=== PATIENT | male | born 1980 | race Caucasian/White ===

== ENCOUNTER → 2018-11-02 | Outpatient (CLI) | payer OTHER, SELFPAY ==
[2017-07-07 15:24] VITALS: BMI 29.8
[2018-11-02 17:52] LABS: Cholesterol 211 mg/dL (200); High Density Lipoprotein 51 mg/dL; PSA,Total - Annual Screen 0.87 ng/mL (0.00-4.00); Triglycerides 234 mg/dL; Very Low Density Lipoprotein 47 mg/dL (5-40)
== END | disposition home or self-care (01) ==
PROVIDERS: Family Provider Family Medicine; PCP Family Medicine; Referring Provider Family Medicine; Visit Provider Family Medicine
DX: Z12.5 Encounter for screening for malignant neoplasm of prostate (principal); Z13.220 Encounter for screening for lipoid disorders
CPT/HCPCS: 36415; 80061; 84153; G0103

== ENCOUNTER → 2020-12-04 16:50 | Outpatient (CLI) | payer BC, SELFPAY ==
--- NOTE | 2020-12-04 16:57 | RAD_ITS ---
STUDY: X-RAY - PELVIS AND BILATERAL HIPS REASON FOR EXAM: Male, 40 years old. CHRONIC BACK PAIN TECHNIQUE: AP view of the pelvis.? 2 views of the right hip, and 2 views of the left hip were obtained. COMPARISON: None. FINDINGS: There is a non-specific bowel gas pattern. Normal visualized soft tissue structures. Normal bilateral iliac wings, sacroiliac joints and visualized sacrum. Normal bilateral superior and inferior pubic rami. Normal pubic symphysis. Normal bilateral ischial tuberosities. Normal visualized right femoral head. Normal right acetabulum. Normal right hip joint. Normal visualized left femoral head. Normal left acetabulum. Normal left hip joint. RAD/Hips B/L min 2 views w/ Pelvis IMPRESSION: Normal x-ray examination of the pelvis and bilateral hips. Electronically Signed: Denisa Art MD at 0:54 EDT , Service support ,
[2020-12-04 16:59] LABS: Lyme Ab Screen Interpretation REF LAB
[2020-12-04 17:46] LABS: Absolute Lymphocyte Count 2.06 X10^3/uL (0.83-4.51); Absolute Neutrophil Count 4.2 X10^3/uL (2.0-7.7); Basophil# 0.07 X10^3/uL; Eosinophil# 0.28 X10^3/uL; Eosinophils% 3.8 % (0-5); Hematocrit 43.1 % (40-54); Hemoglobin 14.7 g/dL (13.0-16.5); Lymphocyte # 2.06 X10^3/ul (0.83-4.51); Lymphocyte % 28.2 % (19-41); Mean Corp Hgb Conc 34.1 g/dL (32-36); Mean Corpuscular Hgb 30.6 pg (27.0-32.0); Mean Corpuscular Volume 89.8 fL (80-94); Mean Platelet Vol. 9.5 fl (6.2-12.0); Monocyte# 0.63 X10^3/uL; Monocyte% 8.6 % (0-10); NRBC Flagged by Analyzer 0 % (0-5); Neutrophil # 4.24 X10^3/uL (2.7-7.7); Neutrophil % 58.1 % (47-70); Platelet Count 284 K/mm3 (150-450); RBC Distribution Width CV 13.8 % (11.6-14.6); RBC Distribution Width SD 45.5 fl (35.1-43.9); White Blood Count 7.3 K/mm3 (4.4-11.0)
[2020-12-04 17:57] LABS: Erythrocyte Sedimentation Rate 8 mm/hr (0-20)
[2020-12-04 18:41] LABS: ALB/GLOB Ratio 1.1 RATIO (0.9-2.4); AST(SGOT) 16 U/L (15-37); Alanine Aminotransfer ALT/SGPT 24 U/L (16-61); Alkaline Phosphatase 78 U/L (45-117); Anion Gap 8 (5-15); BUN 14 mg/dL (7-18); BUN/Creat Ratio 14.4 RATIO (10-20); CRP < 2.90 mg/L (0.0-3.0); Calcium,Total 9.1 mg/dL (8.5-10.1); Chloride 102 mmol/L (98-107); Creatinine, Serum 0.97 mg/dL (0.70-1.30); EST Glomerular Filtration Rate 90 mL/min (>60); Est Glom Filt Rate - Afr Amer 108 mL/min (>60); Globulin 3.7 g/dL (2.2-4.2); Glucose 80 mg/dL (74-106); Potassium 3.4 mmol/L (3.5-5.1); Protein, Total 7.7 g/dL (6.4-8.2); Sodium Level 138 mmol/L (136-145)
[2020-12-06 13:18] LABS: ANTINUCLEAR ANTIBODIES DIRECT Negative (Negative)
[2020-12-06 16:06] LABS: Lyme Scn Total Ab w/Rflx <0.91 ISR (0.00-0.90)
== END ==
PROVIDERS: PCP Family Medicine; Referring Provider Family Medicine; Visit Provider Family Medicine
DX: M54.9 Dorsalgia, unspecified (principal); M19.90 Unspecified osteoarthritis, unspecified site
CPT/HCPCS: 36415; 73521; 80053; 85025; 85652; 86038; 86140; 86225; 86235; 86618

== ENCOUNTER 2021-01-02 18:25 | Emergency (ER) | payer OTHER, BC, SELFPAY ==
[2021-01-02 18:25] VITALS: BP 149/99; PULSE 82; RESP 16; TEMP 36.6; O2SAT 100; BMI 32.3
--- NOTE | 2021-01-02 19:12 | RAD_ITS ---
STUDY: X-RAY - RIGHT KNEE REASON FOR EXAM: Male, 40 years old.Fall, posterior knee pain. injury TECHNIQUE: 4 view(s) of the knee. COMPARISON: None. FINDINGS: A large joint effusion is present. There is questionable small cortical oblique fracture in the posterior cortex of the fibular head, although this is not seen on the remaining views. A bone contusion or hairline fracture not detected by x-ray is suspected given the presence and size of the joint effusion. Normal visualized distal femur. Normal visualized proximal tibia. Normal proximal tibiofibular articulation. There is no demonstrated fracture. Normal medial femorotibial compartment. Normal lateral femorotibial compartment. Normal patellofemoral articulation. RAD/Knee 4 or More Views IMPRESSION: 1. A large joint effusion is present. There is questionable small cortical oblique fracture in the posterior cortex of the fibular head, although this is not seen on the remaining views. A bone contusion or hairline fracture not detected by x-ray is suspected given the presence and size of the joint effusion Electronically Signed: Hernandez Johnson MD at 20:12 EST , Service support ,
--- NOTE | 2021-01-02 19:13 | EX.ED.GENINJ ---
HPI History of Present Illness Chief Complaint: Fall Detail of Chief Complaint: Fall with injury to right knee Informant: patient Narrative Narrative: Patient presents to the emergency department after he sustained a fall that was work-related. 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 Patient states that he landed awkwardly and injured his right knee. Patient denies striking his head or loss of consciousness. He denies neck pain. He denies chest pain. Denies abdominal pain. Patient unable to bear weight on his right leg secondary to pain. [facility] Medical History (Updated 01/02/21 @ 19:[address] Savanna Tolliver, DO) GERD (gastroesophageal reflux disease) Home Medications hydrocodone-acetaminophen 1 tab PO Q4H PRN PRN 2 Days #10 tablet 01/02/21 [Rx Last Taken Unknown] Allergy/AdvReac Type Severity Reaction Status Date / Time No Known Allergies Allergy Verified 01/02/21 18:27 Social History (Updated 06/29/19 @ 08:[address] Linda Mckeon, [place]) Smoking Status: Former smoker alcohol intake: current alcohol intake frequency: 0-2 drinks per day Alcohol type: beer substance use type: does not use what type of physical activity do you participate in: weight training frequency: 1-2 times per week ROS ROS ED Constitutional Constitutional ED: Reports systems reviewed and no addt'l complaints, except as documented; Denies body ache(s), change in weight or chills Eyes Eyes: Denies acute decrease in peripheral vision, change in vision, double vision or loss of vision ENT ENT ED: Reports none; Denies ear pain, lip swelling, loss taste/smell, neck pain, otalgia or sore throat Cardiovascular Cardiovascular: Reports none; Denies abdominal pain, chest pain with activity, leg edema, lightheadedness, palpitations, rapid heart rate or syncope Respiratory/Chest Respiratory/Chest: Reports none; Denies change in mental status, dry cough, dyspnea, hemoptysis, shortness of breath at rest or shortness of breath with exertion Gastrointestinal Gastrointestinal: Reports none; Denies abdominal pain, change in stool character, diarrhea, hematemesis, hematochezia, melena, rectal bleeding or vomiting Genitourinary Genitourinary ED: Reports none; Denies abdominal discomfort, anuria, dysuria, genital pain or polyuria Musculoskeletal Musculoskeletal: Reports none and other Details: Right knee pain/injury ; Denies arthralgias, back pain, difficulty walking, extremity pain, muscle weakness or myalgias Integumentary Reports none; Denies abscess or rash Neurologic Neurologic: Reports none; Denies abnormal gait, confusion, focal weakness, frequent falls, headache(s), loss of vision, numbness, paresthesias, radicular pain, vertigo or weakness Psychiatric Psychiatric: Reports systems reviewed and no addt'l complaints, except as documented and none; Denies behavioral changes, confusion, difficulty concentrating, hallucinations, suicidal ideation, tactile hallucinations or visual hallucinations Endocrine Endocrinology: Denies none, cold intolerance, excessive sweating, fatigue or heat intolerance Hematologic/Lymphatic Hematologic/Lymphatic: Reports none; Denies anemia, easy bleeding or easy bruising Allergic/Immunologic Allergic/Immunologic ED: Denies as per HPI, none, lip swelling, mouth swelling, throat swelling, tongue swelling or hives EXAM Physical Exam Const Vital Signs: 01/02/21 18:25 Temperature 98 F Temperature Source Temporal Pulse Rate 82 Respiratory Rate 16 Blood Pressure 149/99 H Blood Pressure Mean 115 Pulse Ox 100 Oxygen Delivery Method Room Air Positive well nourished and well developed General Appearance ED: well developed and NAD HEENT Reports TM's clear and moist mucous membranes normocephalic and atraumatic; Negative for trauma or tenderness Tympanic Membrane ED: Yes TM's clear Eyes PERRL and EOMs intact bilaterally General Eye ED: Negative for pale conjunctiva or scleral icterus Neck no lymphadenopathy, supple and no JVD General: Negative for tenderness Chest Wall inspection of chest normal and palpation of chest normal Chest: Negative for tenderness Resp normal respiratory effort and clear to auscultation bilaterally Effort and Inspection: Negative for respiratory distress or pain with movement Auscultation: Negative for rhonchi, wheezes or diminished lung sounds Cardio regular rate, regular rhythm, S1 normal heart sound, S2 normal heart sound and no murmurs Peripheral Pulses: pulses 2+ throughout GI normal to inspection, nondistended, normoactive bowel sounds, soft to palpation, non-tender, non-distended and no masses Back/Spine no CVA tenderness and no thoracic nor lumbar tenderness Extremity Extremity Narrative: Evaluation of the right knee reveals no obvious deformity. No significant effusion noted. There is no soft tissue swelling noted. He has pain with flexion of the knee past 45 degrees. He has diffuse tenderness about the medial and lateral joint lines. No pain at the hip. No obvious deformity noted and no leg shortening noted. Neurovascularly intact. Not tolerate ligamentous exam of knee due to pain. General Extremety ED: Negative for edema General Extremity: Negative for edema Neuro oriented x3, CN's II-XII intact bilaterally, no sensory deficits noted and gait normal Sensorium / Orientation: awake, alert, oriented to person, oriented to place and oriented to time Motor Exam: strength 5/5 throughout and strength abnormal Psych mental status grossly normal Skin no rashes or lesions noted and no wounds MDM MDM MDM Narrative Medical decision making narrative: Patient will be placed in a knee immobilizer and given crutches. He is given a prescription for [place] for pain. He is given work restrictions. Patient will be referred to orthopedics for follow-up. Radiography Diagnostic Testin view x-rays of the right knee obtained interpreted by myself as no acute fractures or dislocations. Official report from radiology pending. Discharge Plan Triage Chief Complaint: Fall ED Provider: Savanna Tolliver Dx/Rx/DC Orders Clinical Impression: Right knee sprain Instructions: ED Knee Sprain Prescriptions: New hydrocodone-acetaminophen [hydrocodone-acetaminophen] 1 TABLET tablet 1 tab PO Q4H PRN PRN (Reason: Pain) 2 Days Qty: 10 RF: 0 Primary Care Provider: Tonny Romero Referrals: Tonny Romero MD [Primary Care Provider] - Shivam Hood DO [STAFF PHYSICIAN] - 3-5 Days Disposition Disposition: Home, Self Care
[2021-01-02 20:50] VITALS: RESP 18
== END 2021-01-02 20:50 | disposition home or self-care (01) ==
PROVIDERS: Emergency Provider Emergency Medicine; PCP Family Medicine
DX: S83.91XA Sprain of unspecified site of right knee, initial encounter (principal); K21.9 Gastro-esophageal reflux disease without esophagitis; Z87.891 Personal history of nicotine dependence; W17.89XA Other fall from one level to another, initial encounter; Y93.89 Activity, other specified; Y92.89 Other specified places as the place of occurrence of the external cause; Y99.0 Civilian activity done for income or pay
CPT/HCPCS: 73564; 99283

== ENCOUNTER → 2021-01-17 06:40 | Outpatient (CLI) | payer OTHER, SELFPAY ==
--- NOTE | 2021-01-16 12:50 | RAD_ITS ---
STUDY: X-RAY - ORBITS REASON FOR EXAM: Male, 40 years old. HX METAL TO EYE- PRE MRI 01/17/21 TECHNIQUE: 2 view(s) of the orbits were obtained. COMPARISON: None. FINDINGS: Normal bilateral orbits without a metallic orbital foreign body. Normal visualized facial bones. Normal paranasal sinuses. The soft tissue structures are unremarkable. RAD/Orbits for Foreign Body IMPRESSION: No demonstrated metallic orbital foreign body. The patient is cleared for an MRI examination. Electronically Signed: Kel Stanley MD at 13:15 EST , Service support ,
--- NOTE | 2021-01-17 06:42 | MRI_ITS ---
STUDY: MRI RIGHT KNEE REASON FOR EXAM: Medial right knee pain, instability and swelling, right knee injury 2 weeks ago. TECHNIQUE: Standardized fat and water weighted pulse sequences were obtained in all 3 orthogonal planes. COMPARISON: Radiographs 01/02/2021. FINDINGS: There is mild intrasubstance myxoid degeneration of the posterior horn of the medial meniscus without discrete medial meniscal tear. Normal hyaline cartilage of the medial femorotibial compartment. There is a bone contusion of the medial femoral condyle (T2 sagittal images 21-23). There is a bone contusion of the posterior aspect of the medial tibial plateau (T2 coronal images 13-16) and a bone contusion of the anterior aspect of the medial tibial plateau (T2 coronal images 26, 27). There is a tear of the medial collateral ligament (T2 coronal images 21, 22). Normal distal semimembranosus, gracilis and semitendinosus tendons. There is a peripheral tear of the posterior horn of the lateral meniscus (T2 sagittal images 8-10). Normal hyaline cartilage of the lateral femorotibial compartment. There is a small nondisplaced fracture of the posterior aspect of the lateral tibial plateau (proton-density sagittal images 16, 17). There is a subchondral bone contusion of the lateral femoral condyle (T2 sagittal images 7-9) Normal proximal tibiofibular articulation. There is a partial tear of the distal lateral collateral ligament (T2 coronal image 16). Normal popliteus tendon. Normal biceps femoris tendon. There is a complete tear of the mid anterior cruciate ligament (T2 sagittal image 14). Normal posterior cruciate ligament (PCL). Normal congruent patellofemoral articulation. Normal hyaline cartilage of the patellofemoral compartment. Normal medial and lateral patellar retinaculum. Normal visualized quadriceps tendon. Normal patellar tendon. Normal Hoffa''s fat pad. There is a moderate-sized joint effusion with extravasation of fluid. There is a thin medial patellar plica. There is a small popliteal cyst (T2 sagittal images 17-19). There are low-grade strains of the distal posterior vastus medialis and vastus lateralis muscles (T2 coronal images 19-21). There is a low-grade strain of the proximal lateral gastrocnemius muscle (T2 sagittal images 7-9). There is edema in the subcutis adipose space. There is a subtle nondisplaced fracture of the proximal fibula (proton-density sagittal image 7) with bone edema (T2 coronal images 13, 14). MRI/Lower Ext Joint Only (Routine) IMPRESSION: Anterior cruciate ligament tear. Medial collateral ligament tear. Partial tear of the lateral collateral ligament. Peripheral tear of the lateral meniscus. Small nondisplaced fractures of the lateral tibial plateau and proximal fibula. Bone contusions of the medial and lateral femoral condyles, and medial tibial plateau. Low-grade strains of the distal vastus medialis, vastus lateralis and lateral gastrocnemius muscles. Joint effusion with extravasation of fluid. Small popliteal cyst. Electronically Signed: Kadeem Foster MD at 9:35 EST Tel , Service support ,
== END ==
PROVIDERS: PCP Family Medicine
DX: S83.91XA Sprain of unspecified site of right knee, initial encounter (principal)
CPT/HCPCS: 70030; 73721

== ENCOUNTER 2021-04-16 10:30 | Outpatient (RCR) | payer OTHER, SELFPAY ==
--- NOTE | 2021-02-07 09:55 | HP.PTEVAL ---
Patient's Visit Information KURT PECK is a 40 year old M referred to Physical Therapy by Dr. Hailey Lees DO with a diagnosis of R ACL rupture, L LCL strain, tear of R lateral meniscus, DOI: 01/02/21. Date of Evaluation: 02/05/21 Physical Therapist: Edinson Alexandre DPT - Visit Plan Frequency: 3x /Week Duration: 6 Weeks Plan: Start with ROM, gentle progression. Work on edema and add in light quad isometrics. Progress HEP to increase carry over at home. - Subjective Pt. is here today for his initial evaluation with diagnosis of R ACL rupture, L LCL strain, tear of R lateral meniscus. Pt. hurt his knee when he fell from a truck ~1 month ago, DOI: 01/02/21.. He was barely able to bear wt. after wards. Ultimately found that he had the above ACL tear and meniscal tear. He saw his surgeon who desires him to increase his ROM gradually, while maintaining NWB on his RLE for the next 6 weeks. He will then be re evaluated for surgical intervention. He reports pain at medial joint line, stiffness throughout and throbbing most of the time. He is in a knee brace with medial/lateral bracing but is hinged allowing for 0-120deg of R knee mobility. He arrives today using crutches as prescribed. He has been NWBing for a few weeks now. He is icing and using compression sleeve for edema. He has been doing light stretching at home as well. He is hopeful to increase his ROM, decrease his pain and get ready for possible surgical intervention. - Pain R medial knee Pain Intensity (Out of 10): 3 Pain Intensity Range: 1, 7 - Objective POSTURE: Pt. is able to stand with proper NWBing on his RLE. Pt. tends to keep his leg in guarded partially flexed position in standing and sitting. PALAPTION: Pt. has marked edema throughout RLE. Girth measurements: 2.5 inch difference at patella, 1.5 inch difference 4inch above patella, 1 inch difference at mid calf. Pt. has negative homans sign. NEURO: Pt. has normal sensation to light and sharp touch throughout BLEs. Pt. has normal achilles DTR, did not test patellar. ROM: L knee: full knee extension, 137deg of flexion, 0-0-137deg. R knee lacking 10 deg of extension, flexion to 60deg. (0-10-60). Pt. tender at medial joint line with both flexion and extension. MMT: LLE: 5/5 throughout. RLE: ankle 5/5 throughout; knee - quad lag with SLR; hip- flexion 4+/5, abd 4/5, ext 4/5.. GAIT: Pt. ambulates with proper NWBing on his RLE with good safety. R knee slightly flexed during gait pattern. - Balance/Special Test Scores Lower Extremity Functional Score: 16 - Goals Goal 1:: LTG: Pt. to be I with HEP. Goal Time Frame: 4-6 Weeks Goal 2:: STG: Pt. to have decreased edema in RLE with girth measurements equal to L knee. Goal Time Frame: 2-4 Weeks Goal 3:: LTG: pt. to have increased R knee ROM to 0-0-90deg. actively without increase in symptoms. Goal Time Frame: 4-6 Weeks Goal 4:: STG: Pt. to have passive ROM allowing for full knee extension. Goal Time Frame: 2-4 Weeks Goal 5:: LTG: Pt. to have increased quad strength allowing for 20 straight leg raises without quad lag without increase in symptoms. Goal Time Frame: 4-6 Weeks - Rehabilitation Potential Physical Therapy Diagnosis: Pt. has signs and symptoms consistent with R ACL rupture, L LCL strain, tear of R lateral meniscus. Pt. has marked increased edema and hypomobility. He would benefit from PT to work on his hypomobility, increased edema. Rehabilitation Potential: Good - Anticipated Interventions Patient/Client Instruction: Educate patient on: Condition, Plan of Care, Risk Factors, Benefits of Fitness Program For the Purpose of:: To improve decision making, To facilitate caregiver knowledge, To improve self management, To prevent re-injury, To improve ability to perform tasks related to life management Therapeutic Exercise to Include: Strength training, Postural training, Flexibilty training, Passive ROM, Active ROM For the Purpose of:: To decrease pain, To decrease swelling/inflammation, To increase ROM, To improve nutrient delivery to tissue, To increase oxygenation perfusion, To improve muscle performance and motor function Thank you for the opportunity to evaluate your patient. For Medicare and Medicare HMO plans, please review the plan of care and approve it. It will need to be FAXED BACK to us at [phone] for Medicare purposes. For Medicare only, by signing this I certify the plan of care. Please let me know if there are questions or concerns regarding this plan of care. Physician Signature: Date:
--- NOTE | 2021-02-26 13:11 | HP.PTREVAL ---
Dr. Hailey Lees, DO, It has been my pleasure to treat KURT PECK over the last 9 visits for R ACL rupture, L LCL strain, tear of R lateral meniscus, DOI: 01/02/21. Please see the progress note below for an update on the physical therapy plan of care! Subjective: Pt. reports overall doing ok. Pt. reports being HEP compliant. He trialed a new compression sleeve which was helpful. Pt. reports no pain currently, but was sore last night. He is to see physician in 16 days. Objective/Function: R knee ROM: AROM: 0-2-78deg, PROM 0-0-90deg. Pt. limited but pain with further ROM at lateral/posterior knee. Pt. has overall improved edema today. His edema in non pitting, still 3cm difference between sides at mid patella. Pt. has good hip strength. I did not test his knee strength today due to area of injury. He is walking well with NWBing on his RLE. Overall he continues to progress with ROM as expected. He is still swollen and I talked to him again about using compression and the vaso device at home with elevation. Pt. consents. Pt. was able to complete x20 reps SLR with slight extensor lag Plan Plan: Start with ROM, gentle progression. Work on edema and add in light quad isometrics. Progress HEP to increase carry over at home. Balance/Gait/Functional tests - Balance/Special Test Scores Lower Extremity Functional Score: 25 Goals Goal 1:: LTG: Pt. to be I with HEP. Goal Time Frame: 2-4 Weeks Goal Progress: Progressing Goal 2:: STG: Pt. to have decreased edema in RLE with girth measurements equal to L knee. Goal Time Frame: 2-4 Weeks Goal Progress: Progressing Goal 3:: LTG: pt. to have increased R knee ROM to 0-0-90deg. actively without increase in symptoms. Goal Time Frame: 4-6 Weeks Goal Progress: Progressing Goal 4:: STG: Pt. to have passive ROM allowing for full knee extension. Goal Time Frame: 2-4 Weeks Goal Progress: Goal Met Goal 5:: LTG: Pt. to have increased quad strength allowing for 20 straight leg raises without quad lag without increase in symptoms. Goal Time Frame: 4-6 Weeks Goal Progress: Goal Met Anticipated Interventions Patient/Client Instruction: Educate patient on: Condition, Plan of Care, Risk Factors, Benefits of Fitness Program For the Purpose of:: To improve decision making, To facilitate caregiver knowledge, To improve self management, To prevent re-injury, To improve ability to perform tasks related to life management Therapeutic Exercise to Include: Strength training, Postural training, Flexibilty training, Passive ROM, Active ROM For the Purpose of:: To decrease pain, To decrease swelling/inflammation, To increase ROM, To improve nutrient delivery to tissue, To increase oxygenation perfusion, To improve muscle performance and motor function Please do not hesitate to contact me at [phone] by phone or if you have questions or concerns regarding this new plan of care! Sincerely, EVONNE WallaceT
--- NOTE | 2021-03-12 13:04 | HP.PTREVAL ---
Dr. Hailey Lees, DO, It has been my pleasure to treat KURT PECK over the last 13 visits for R ACL rupture, L LCL strain, tear of R lateral meniscus, DOI: 01/02/21. Please see the progress note below for an update on the physical therapy plan of care! Subjective: Pt. reports feeling better today. He is still stiff. He was ill towards the end of last week, but is much better. Pt. reports continued icing and stretching at home. Objective/Function: Pt. to see physician on 03/14/21. Pt. re assessed today. His ROM: PROM: 0-4-89deg, AROM: 0-5-85deg. Pt. tender at posterior lateral knee with flexion, and medial joint line pain with extension. He is still having some swelling issues ~2 inch diff at mid patella. This was better previously, but more swollen today. I would like him to be very nice to his leg with elevation and compression. He has been using vaso pump at home with ice. Plan Plan: Pt. case on hold pending follow up with physician. Balance/Gait/Functional tests - Balance/Special Test Scores Lower Extremity Functional Score: 32 Goals Goal 1:: LTG: Pt. to be I with HEP. Goal Time Frame: 2-4 Weeks Goal Progress: Goal Met Goal 2:: STG: Pt. to have decreased edema in RLE with girth measurements equal to L knee. Goal Time Frame: 2-4 Weeks Goal Progress: Progressing Goal 3:: LTG: pt. to have increased R knee ROM to 0-0-90deg. actively without increase in symptoms. Goal Time Frame: 4-6 Weeks Goal Progress: Progressing Goal 4:: STG: Pt. to have passive ROM allowing for full knee extension. Goal Time Frame: 2-4 Weeks Goal Progress: Progressing Goal 5:: LTG: Pt. to have increased quad strength allowing for 20 straight leg raises without quad lag without increase in symptoms. Goal Time Frame: 4-6 Weeks Goal Progress: Progressing Anticipated Interventions Patient/Client Instruction: Educate patient on: Condition, Plan of Care, Risk Factors, Benefits of Fitness Program For the Purpose of:: To improve decision making, To facilitate caregiver knowledge, To improve self management, To prevent re-injury, To improve ability to perform tasks related to life management Therapeutic Exercise to Include: Strength training, Postural training, Flexibilty training, Passive ROM, Active ROM For the Purpose of:: To decrease pain, To decrease swelling/inflammation, To increase ROM, To improve nutrient delivery to tissue, To increase oxygenation perfusion, To improve muscle performance and motor function Please do not hesitate to contact me at [phone] by phone or if you have questions or concerns regarding this new plan of care! Sincerely, EVONNE WallaceT
--- NOTE | 2021-04-17 11:10 | HP.PTREVAL ---
Dr. Hailey Lees, DO, It has been my pleasure to treat KURT PECK over the last 24 visits for R ACL rupture, L LCL strain, tear of R lateral meniscus, DOI: 01/02/21. Please see the progress note below for an update on the physical therapy plan of care! Subjective: Pt. reports overall doing well. He is to haver surgery tomorrow. He has been using crutches properly. 02/26 pain pre treatment today. Objective/Function: ROM: 0-0-98deg. Pt. has increased ROM with flexion and extension noted. Pt. has increased edema ~8cm increase at mid patella R compared to L. MMT: knee ext 4+/5, flexion 4+/5; hip: flexion 5/5, abd 5/5, ext 5/5. Pt. is able to complete SLR without quad lag. he does still have some medial knee pain and posterior lateral knee pain. He is to have surgery tomorrow. Plan Plan: Pt. to have surgery tomorrow. Resume PT after surgeon guidence. Balance/Gait/Functional tests - Balance/Special Test Scores Lower Extremity Functional Score: 32 Goals Goal 1:: LTG: Pt. to be I with HEP. Goal Time Frame: 2-4 Weeks Goal Progress: Goal Met Goal 2:: STG: Pt. to have decreased edema in RLE with girth measurements equal to L knee. Goal Time Frame: 2-4 Weeks Goal Progress: Progressing Goal 3:: LTG: pt. to have increased R knee ROM to 0-0-90deg. actively without increase in symptoms. Goal Time Frame: 4-6 Weeks Goal Progress: Goal Met Goal 4:: STG: Pt. to have passive ROM allowing for full knee extension. Goal Time Frame: 2-4 Weeks Goal Progress: Goal Met Goal 5:: LTG: Pt. to have increased quad strength allowing for 20 straight leg raises without quad lag without increase in symptoms. Goal Time Frame: 4-6 Weeks Goal Progress: Goal Met Anticipated Interventions Patient/Client Instruction: Educate patient on: Condition, Plan of Care, Risk Factors, Benefits of Fitness Program For the Purpose of:: To improve decision making, To facilitate caregiver knowledge, To improve self management, To prevent re-injury, To improve ability to perform tasks related to life management Therapeutic Exercise to Include: Strength training, Postural training, Flexibilty training, Passive ROM, Active ROM For the Purpose of:: To decrease pain, To decrease swelling/inflammation, To increase ROM, To improve nutrient delivery to tissue, To increase oxygenation perfusion, To improve muscle performance and motor function Please do not hesitate to contact me at [phone] by phone or if you have questions or concerns regarding this new plan of care! Sincerely, Edinson Alexandre DPT
--- NOTE | 2021-05-02 11:38 | HP.PT.NRP ---
KURT PECK was seen in my office for initial evaluation on 02/05/21. The following Plan of Care was established for this patient: Initial Frequency: 3x /Week Initial Duration: 6 Weeks Patient/Client Instruction: Educate patient on: Condition, Plan of Care, Risk Factors, Benefits of Fitness Program For the Purpose of:: To improve decision making, To facilitate caregiver knowledge, To improve self management, To prevent re-injury, To improve ability to perform tasks related to life management Therapeutic Exercise to Include: Strength training, Postural training, Flexibilty training, Passive ROM, Active ROM For the Purpose of:: To decrease pain, To decrease swelling/inflammation, To increase ROM, To improve nutrient delivery to tissue, To increase oxygenation perfusion, To improve muscle performance and motor function This patient was last seen in our office 05/10/21. Pertinent comments regarding their Physical therapy will appear below: Pt. was seen in PT to increase ROM of his R knee prior to surgery. He attended all appointments and progressed well. He had his surgery and will be DC from PT at this point in time. At this point I will be discontinuing this patient from physical therapy. I would be happy to see this patient again in the future if found appropriate by the physician. Thank you! Edinson Alexandre, DPT Balance/Gait/Functional tests - Balance/Special Test Scores Lower Extremity Functional Score: 32
== END 2021-04-16 19:00 | disposition home or self-care (01) ==
LOC: PT 10:30
PROVIDERS: PCP Family Medicine; Referring Provider Orthopaedic Surgery; Visit Provider Orthopaedic Surgery
DX: S83.511D Sprain of anterior cruciate ligament of right knee, subsequent encounter (principal); M25.561 Pain in right knee; X58.XXXD Exposure to other specified factors, subsequent encounter; S83.421D Sprain of lateral collateral ligament of right knee, subsequent encounter; S83.281D Other tear of lateral meniscus, current injury, right knee, subsequent encounter
CPT/HCPCS: 97110; 97161; 97164

== ENCOUNTER 2021-11-14 08:00 | Outpatient (RCR) | payer OTHER, SELFPAY ==
--- NOTE | 2021-05-11 10:26 | HP.PTEVAL ---
Patient's Visit Information KURT PECK is a 41 year old M referred to Physical Therapy by Dr. Hailey Lees DO with a diagnosis of R MCL, ACL reconstruction and lateral meniscus repair. Date of Evaluation: 05/10/21 Physical Therapist: Edinson Alexandre DPT - Visit Plan Frequency: 3x /Week Duration: 8 weeks Plan: Start with working TKE and progressing flexion as tolerated. Add in quad iso and build up hip strengthening as well. foam rolling to HS and quad. Progress hip/core strengthening as well. Add in vaso/ice of edema management. - Subjective Pt. is here today for his initial evaluation with diagnosis of R MCL, ACL reconstruction and lateral meniscus repair. DOS: 04/17/21. Pt. arrives with crutches today without issues. Pt. reports overall doing well. He reports 3/10 pain today in his R knee. He has been icing and elevating as prescribed. He no N/T. He is in a TROM brace opened to 90deg in sitting, locking with standing and walking. He is to be NWBing on his RLE. He got hurt at work when he fell from the back side of a truck that he was applying a tarp to. 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 He has been off work since late last year. He reports expected RTW is at end of July. Pt. is hopeful to increase ROM and ultimately get back to all recreational and work activities without limitations. - Pain R knee Pain Intensity (Out of 10): 3 Pain Intensity Range: 2, 6 - Objective POSTURE: pt. has good posture in stance. Maintains NWBing on his R LE. Pt. other burt normal, slight loss in TKE in stance. PALPATION: pt. has marked edema in RLE 16cm difference at mid patella. NEURO: Pt. has normal sensation to RLE, except slight loss at lateral distal LE. ROM: L knee 0-8-83deg. PROM: 0-5-85deg. Pt. has tight HS and hip flexor as well in RLE. MMT: Pt. has a good quad set, he does have slight extensor lag with SLR on RLE. Ankle 5/5 throughout. GAIT: pt. has good gait pattern NWBing on RLE without issues. - Balance/Special Test Scores Lower Extremity Functional Score: 29 - Goals Goal 1:: LTG: Pt. to be I with HEP for ROM and strengthening. Goal Time Frame: 4-6 Weeks Goal 2:: STG: Pt. to have increased TKE to full actively without increase in symptoms. Goal Time Frame: 2 Weeks Goal 3:: LTG: pt. to have at least 120deg of Rknee flexion allowing for increased ability to complete all work related activities. Goal Time Frame: 4-6 Weeks Goal 4:: STG: Pt. to complete SLR x20 without extensor lag indicating increased quad control. Goal Time Frame: 2-4 Weeks Goal 5:: LTG: Pt. to ambulate with normal WBing with normal pattern without increase in symptoms. Goal Time Frame: 4-6 Weeks Goal 6:: LTG: Pt. to have equal girth measurments between BLEs indicating decreased RLE edema. Goal Time Frame: 4-6 Weeks - Rehabilitation Potential Physical Therapy Diagnosis: Pt. has signs and symptoms consistent with R MCL, ACL reconstruction and lateral meniscus repair DOS: 04/17/21. Pt. has marked edema, decreased ROM, decreased strength, difficulty walking and difficulty with ADLs. He would benefit from PT to work on the above limitations progressing back to all work related activities without limitation. Rehabilitation Potential: Excellent - Anticipated Interventions Patient/Client Instruction: Educate patient on: Condition, Plan of Care, Risk Factors, Benefits of Fitness Program For the Purpose of:: To improve self management, To prevent re-injury, To improve ability to perform tasks related to life management Therapeutic Exercise to Include: Strength training, Power training, Balance training, Coordination, Postural training, Flexibilty training, Gait and locomotor training, Passive ROM, Active ROM, Dynamic Lumbar Stabilization For the Purpose of:: To decrease pain, To decrease swelling/inflammation, To increase ROM, To improve nutrient delivery to tissue, To increase oxygenation perfusion, To improve muscle performance and motor function, To improve ability to perform ADL's, To improve ability of physical actions for home/community/work/leisure, To improve gait and locomotor functions, To improve health of tissue, To decrease soft tissue restriction, To increase flexibility/ROM Manual Therapy Techniques to Include: Passive ROM, Soft tissue mobilization For the Purpose of:: To decrease pain, To decrease swelling/inflammation, To increase ROM, To improve nutrient delivery to tissue, To increase oxygenation perfusion, To improve muscle performance and motor function Cryotherapy (ice pack, ice massage): Yes Vasopneumatic device: Yes For the Purpose of:: To decrease pain, To decrease swelling/inflammation, To increase ROM, To improve nutrient delivery to tissue, To increase oxygenation perfusion Thank you for the opportunity to evaluate your patient. For Medicare and Medicare HMO plans, please review the plan of care and approve it. It will need to be FAXED BACK to us at [phone] for Medicare purposes. For Medicare only, by signing this I certify the plan of care. Please let me know if there are questions or concerns regarding this plan of care. Physician Signature: Date:
--- NOTE | 2021-06-13 12:50 | HP.PTREVAL_ITS ---
Dr. Hailey Lees, DO, It has been my pleasure to treat KURT PECK over the last 14 visits for R MCL, ACL reconstruction and lateral meniscus repair. Please see the progress note below for an update on the physical therapy plan of care! Subjective: Pt. reports overall no new issues. He is walking well with 1 crutch without issues. Pt. reports no pain pre treatment today. Objective/Function: ROM: 0-0-115deg. Mild soreness at end range flexion. NO issues with extension. MMT: PT. has good quad set with minimal to no lag with SLR. KNee flexion: 4+/5; hip: flexion 4/5, abd 4+/5. ext 4+/5. gait: Pt. has good gait pattern with 1 crutch. He has slight increase in more antalgic pattern with removal of crutches. Pt. has decreased R knee flexion during swing, tends to keep his leg rigid with gait without AD. He still has marked swelling, but is overall decreasing and is very pliable. He is tolerating all strengthening and ROM without issues. He reports completing HPE x2 daily with icing throughout the day. Overall he is pleased. Plan Plan: Cont. to progress ROM as tolerated. Work on gait mechanics to reduce compensation patterns. Ice/vaso for edema. Add in strengthening as tolerated. Balance/Gait/Functional tests - Balance/Special Test Scores Lower Extremity Functional Score: 29 Goals Goal 1:: LTG: Pt. to be I with HEP for ROM and strengthening. Goal Time Frame: 4-6 Weeks Goal Progress: Progressing Goal 2:: LTG: Pt. to have normal gait pattern with out use of crutches without issues. Goal Time Frame: 2-4 Weeks Goal Progress: Progressing Goal 3:: LTG: pt. to have at least 120deg of Rknee flexion allowing for increased ability to complete all work related activities. Goal Time Frame: 4-6 Weeks Goal Progress: Progressing Goal 4:: LTG: Pt. to complete SLR x20 without extensor lag indicating increased quad control. NEW Goal: 06/13/21: Pt. to have symmetrical strength between BLEs Goal Time Frame: 2-4 Weeks Goal Progress: Progressing Goal 5:: LTG: Pt. to ambulate with normal WBing with normal pattern without increase in symptoms. Goal Time Frame: 4-6 Weeks Goal Progress: Progressing Goal 6:: LTG: Pt. to have equal girth measurments between BLEs indicating decreased RLE edema. Goal Time Frame: 4-6 Weeks Goal Progress: Progressing Anticipated Interventions Patient/Client Instruction: Educate patient on: Condition, Plan of Care, Risk Factors, Benefits of Fitness Program For the Purpose of:: To improve self management, To prevent re-injury, To improve ability to perform tasks related to life management Therapeutic Exercise to Include: Strength training, Power training, Balance training, Coordination, Postural training, Flexibilty training, Gait and locomotor training, Passive ROM, Active ROM, Dynamic Lumbar Stabilization For the Purpose of:: To decrease pain, To decrease swelling/inflammation, To inc rease ROM, To improve nutrient delivery to tissue, To increase oxygenation perfusion, To improve muscle performance and motor function, To improve ability to perform ADL's, To improve ability of physical actions for home/community/work/leisure, To improve gait and locomotor functions, To improve health of tissue, To decrease soft tissue restriction, To increase flexibility/ROM Manual Therapy Techniques to Include: Passive ROM, Soft tissue mobilization For the Purpose of:: To decrease pain, To decrease swelling/inflammation, To increase ROM, To improve nutrient delivery to tissue, To increase oxygenation perfusion, To improve muscle performance and motor function Cryotherapy (ice pack, ice massage): Yes Vasopneumatic device: Yes For the Purpose of:: To decrease pain, To decrease swelling/inflammation, To increase ROM, To improve nutrient delivery to tissue, To increase oxygenation perfusion Please do not hesitate to contact me at [phone] by phone or if you have questions or concerns regarding this new plan of care! Sincerely, Edinson Alexandre DPT
--- NOTE | 2021-06-25 10:55 | HP.PTREVAL ---
Dr. Hailey Lees, DO, It has been my pleasure to treat KURT PECK over the last 20 visits for R MCL, ACL reconstruction and lateral meniscus repair 04/17/21. Please see the progress note below for an update on the physical therapy plan of care! Subjective: Pt. does repor having like a restless leg issue at night. Pain medication does help. Minimal pain with activities. He does report some ankle/ knee stiffness that reduces with activities. HEP compliant. Objective/Function: MMT: knee: ext 28.7#, flexion 26.9# hip: flexion 30.1#, abd 21.8#, 37.2#. ROM 0-0-119deg. actively. PROM: 0-0-123deg. GAIT: Pt. does have reduced knee flexion during swing phase, improves with VCing. 5Cm difference in edema at mid patellar. Plan Plan: Progress per protocol. Cont. to increase flexion ROM. Strengthening as tolerated. Balance/Gait/Functional tests - Balance/Special Test Scores Lower Extremity Functional Score: 29 Goals Goal 1:: LTG: Pt. to be I with HEP for ROM and strengthening. Goal Time Frame: 4-6 Weeks Goal Progress: Progressing Goal 2:: LTG: Pt. to have normal gait pattern with out use of crutches without issues. Goal Time Frame: 2-4 Weeks Goal Progress: Progressing Goal 3:: LTG: pt. to have at least 120deg of Rknee flexion allowing for increased ability to complete all work related activities. Goal Time Frame: 4-6 Weeks Goal Progress: Progressing Goal 4:: LTG: Pt. to complete SLR x20 without extensor lag indicating increased quad control. NEW Goal: 06/13/21: Pt. to have symmetrical strength between BLEs Goal Time Frame: 2-4 Weeks Goal Progress: Progressing Goal 5:: LTG: Pt. to ambulate with normal WBing with normal pattern without increase in symptoms. Goal Time Frame: 4-6 Weeks Goal Progress: Progressing Goal 6:: LTG: Pt. to have equal girth measurments between BLEs indicating decreased RLE edema. Goal Time Frame: 4-6 Weeks Goal Progress: Progressing Anticipated Interventions Patient/Client Instruction: Educate patient on: Condition, Plan of Care, Risk Factors, Benefits of Fitness Program For the Purpose of:: To improve self management, To prevent re-injury, To improve ability to perform tasks related to life management Therapeutic Exercise to Include: Strength training, Power training, Balance training, Coordination, Postural training, Flexibilty training, Gait and locomotor training, Passive ROM, Active ROM, Dynamic Lumbar Stabilization For the Purpose of:: To decrease pain, To decrease swelling/inflammation, To increase ROM, To improve nutrient delivery to tissue, To increase oxygenation perfusion, To improve muscle performance and motor function, To improve ability to perform ADL's, To improve ability of physical actions for home/community/work/leisure, To improve gait and locomotor functions, To improve health of tissue, To decrease soft tissue restriction, To increase flexibility/ROM Manual Therapy Techniques to Include: Passive ROM, Soft tissue mobilization For the Purpose of:: To decrease pain, To decrease swelling/inflammation, To increase ROM, To improve nutrient delivery to tissue, To increase oxygenation perfusion, To improve muscle performance and motor function Cryotherapy (ice pack, ice massage): Yes Vasopneumatic device: Yes For the Purpose of:: To decrease pain, To decrease swelling/inflammation, To increase ROM, To improve nutrient delivery to tissue, To increase oxygenation perfusion Please do not hesitate to contact me at [phone] by phone or if you have questions or concerns regarding this new plan of care! Sincerely, Edinson Alexandre DPT
--- NOTE | 2021-09-26 11:30 | HP.PTREVAL_ITS ---
Dr. Hailey Lees, DO, It has been my pleasure to treat KURT PECK over the last 54 visits for R MCL, ACL reconstruction and lateral meniscus repair 04/17/21. Please see the progress note below for an update on the physical therapy plan of care! Subjective: Pt. reports overall doing well. He reports no major pain, but still feels like his knee is not totally right. He does report medial and lateral knee pain at times, including walking, stairs and uneven ground. Objective/Function: ROM: 0-0-126deg. MMT: LLE: anbkel 5/5 throughout; knee: ext 59.0#, flexion 57.0#. HIP: flexion 24.4#, abd 29.0#, ext 39.2#. RLE: ankle 5/5 throughout; knee: ext: 64.7#, flexion 57.#, HIP: flexion 22.0#, abd 25.9#, 36.5#. edema.: RLE: mid patella 17inch, 4 in inferior to patella: 16.25 inch, 4 in above patella 20.75inch. LLE: mid patella: 16.5inch, 4 in inferior to patella 16.25, 4 in above patella 20.25#. STAIRS: good with reciprocal pattern, but stiff feels pressure with ascending and descending during R stance phase. star excursion: LLE: abd 55cm, flexion 60cm, ext 65cm, posterior cross over 38cm,. RLE: abd 51 cm, flexion 52cm, ext 57cm, posterior over 26cm. he did have pain at the lateral aspect of his R knee, increase NW after stopping. gait: Pt. has a fairly normal gait pattern, but he does have medial and lateral knee pain with walking. Reduce with use of brace, but slightly. jumping: light bilateral hopping: no pain Plan Plan: I plan to continue with strengthening and stability exercises, but also slowly integrate further dynamic mobility for increased tolerance. Balance/Gait/Functional tests - Balance/Special Test Scores Lower Extremity Functional Score: 51 Goals Goal 1:: LTG: Pt. to be I with HEP for ROM and strengthening. Goal Time Frame: 4-6 Weeks Goal Progress: Goal Met Goal 2:: LTG: Pt. to have normal gait pattern with out use of crutches without issues. Goal Time Frame: 2-4 Weeks Goal Progress: Progressing Goal 3:: LTG: pt. to have at least 120deg of Rknee flexion allowing for increased ability to complete all work related activities. Goal Time Frame: 4-6 Weeks Goal Progress: Goal Met Goal 4:: LTG: NEW GOAL: Pt. to have at least 95% strength from R to LLEs. Goal Time Frame: 2-4 Weeks Goal Progress: Progressing Goal 5:: LTG: Pt. to ambulate with normal WBing with normal pattern without increase in symptoms. Goal Time Frame: 4-6 Weeks Goal Progress: Goal Met Goal 6:: LTG: Pt. to have equal girth measurments between BLEs indicating decreased RLE edema. Goal Time Frame: 4-6 Weeks Goal Progress: Progressing Anticipated Interventions Patient/Client Instruction: Educate patient on: Condition, Plan of Care, Risk Factors, Benefits of Fitness Program For the Purpose of:: To improve self management, To prevent re-injury, To improve ability to perform tasks related to life management Therapeutic Exercise to Include: Strength training, Power training, Balance training, Coordination, Postural training, Flexibilty training, Gait and locomotor training, Passive ROM, Active ROM, Dynamic Lumbar Stabilization For the Purpose of:: To decrease pain, To decrease swelling/inflammation, To increase ROM, To improve nutrient delivery to tissue, To increase oxygenation perfusion, To improve muscle performance and motor function, To improve ability to perform ADL's, To improve ability of physical actions for home/community/work/leisure, To improve gait and locomotor functions, To improve health of tissue, To decrease soft tissue restriction, To increase flexibility/ROM Manual Therapy Techniques to Include: Passive ROM, Soft tissue mobilization For the Purpose of:: To decrease pain, To decrease swelling/inflammation, To increase ROM, To improve nutrient delivery to tissue, To increase oxygenation perfusion, To improve muscle performance and motor function Cryotherapy (ice pack, ice massage): Yes Vasopneumatic device: Yes For the Purpose of:: To decrease pain, To decrease swelling/inflammation, To increase ROM, To improve nutrient delivery to tissue, To increase oxygenation perfusion Please do not hesitate to contact me at [phone] by phone or Fax: if you have questions or concerns regarding this new plan of care! Sincerely, Edinson Alexandre DPT
== END 2021-11-14 16:50 | disposition home or self-care (01) ==
LOC: PT 08:00
PROVIDERS: PCP Family Medicine; Referring Provider Orthopaedic Surgery; Visit Provider Orthopaedic Surgery
DX: Z98.890 Other specified postprocedural states (principal)
CPT/HCPCS: 97016; 97110; 97161; 97164

== ENCOUNTER 2021-12-14 09:00 | Outpatient (RCR) | payer OTHER, BC, SELFPAY ==
--- NOTE | 2021-12-14 09:59 | HP.PTDCSUM ---
It has been my pleasure to treat KURT PECK referred by Dr. Hailey Lees DO, with the diagnosis of R ACL repair for a total of 72 visit(s). Discharge Date: 12/14/21 Please see the following information for a summary of their discharge status. Subjective: Pt. reports overall doing well. Pt. reports being 80% better overall. He reports no pain pre treatment today. R lateral knee and thigh Pain Intensity (Out of 10): 0 % Improvement: 80 Objective/Function: ROM: 0-0-128deg no pain with passive over pressure. MMT: RLE: hip: 80.1#; abd 65.1#, ext 71.7#; knee: ext 60.5# increase in symptoms, flexion 62.5#. LLE: hip flexion 80.6#, abd 71.1#, ext 73.3#; knee: ext 84.4#, flexion 78.4#. He does have a slight L sided wt. shift with squatting, but not major. He has a fairly normal gait pattern. He does report some increase in symptoms in walking at lateral knee and along IT band. He also is c/o R hip (SI region) symptoms with increased walking and work activities. I have given hip REIL, hip flexor stretching and IT band stretching. He has been doing inhibition to this same area as well. Overall he is doing well, he does have slight quad strength difference, but is was more sore than weak when I was testing. He has good ROM as well. He is back to work with most activities with mild increase in soreness. Goal 1:: LTG: Pt. to be I with HEP. Goal Progress: Goal Met Goal 2:: LTG: Pt. to have symmetrical B LE strength. Goal Progress: Progressing Goal 3:: LTG: Pt. to resume all work related activities without limitations. Goal Progress: Progressing Plan: Pt. to be DC to HEP and follow up with physician on Dec 27. Discharge Comments: Pt. is overall doing well. He does have lateral knee pain at times, but not consistently. He is also having some R posterior hip/SI region pain which has been there since his injury. This has not changed much, but is intermittent. I have given him some lumbar ROM, IT band stretching, HS stretching. He is I with LE strengthening as well. He does have some soreness with high wt. testing in knee extension. Overll doing well and will DC back to physician at this point in time. If there are questions or concerns regarding this patient's physical therapy, please feel free to call me at [phone]. Thank you for the referral of this patient. Sincerely, Edinson Alexandre, DPT Balance/Gait/Functional tests - Balance/Special Test Scores Lower Extremity Functional Score: 50
== END 2021-12-14 19:00 | disposition home or self-care (01) ==
LOC: PT 09:00
PROVIDERS: PCP Family Medicine; Referring Provider Orthopaedic Surgery; Visit Provider Orthopaedic Surgery
DX: Z47.89 Encounter for other orthopedic aftercare (principal)
CPT/HCPCS: 97110; 97164

== ENCOUNTER 2022-07-12 07:56 | Outpatient (RCR) | payer OTHER, SELFPAY ==
--- NOTE | 2022-07-12 11:25 | HP.FCE ---
Floor (Occasional 1-33% of Day): 75# Floor (Frequent 34-66% of Day): 38# Floor (Constant 67-100% of Day): 15# Floor PDL: Medium-Heavy Knee (Occasional 1-33% of Day): 75# Knee (Frequent 34-66% of Day): 38# Knee (Constant 67-100% of Day): 15# Knee PDL: Medium-Heavy Waist (Occasional 1-33% of Day): 75# Waist (Frequent 34-66% of Day): 38# Waist (Constant 67-100% of Day): 15# Waist PDL: Medium-Heavy Shoulder (Occasional 1-33% of Day): 50# Shoulder (Frequent 34-66% of Day): 25# Shoulder (Constant 67-100% of Day): 10# Shoulder PDL: Medium Overhead (Occasional 1-33% of Day): 35# Overhead (Frequent 34-66% of Day): 18# Overhead (Constant 67-100% of Day): 7# Overhead PDL: Light-Medium Comments: PHYSICAL DEMAND LEVEL OF MEDIUM-HEAVY for lifting at floor-knee and waist levels. PHYSICAL DEMAND LEVEL OF MEDIUM for lifting at shoulder levels. PHYSICAL DEMAND LEVEL OF LIGHT-MEDIUM at overhead levels. pt demo good lifting mechanics throughout session. Bending: Constant Ability (67-100% of day) Squatting: Frequent Ability (34-66% of day) Kneeling: Frequent Ability (34-66% of day) Reaching out: Constant Ability (67-100% of day) Reaching up: Constant Ability (67-100% of day) Sitting: Constant Ability (67-100% of day) Walking: Constant Ability (67-100% of day) Standing: Constant Ability (67-100% of day) Duration Sedentary Sedentary Light Light Light Medium Medium Medium Heavy Very Heavy Heavy Occasional (0-33% of day) Frequent (34-66% of day) Constant (67-100% of day) 10 # Negligible Negligible 15 # 8 # Negligible 20 # 10# Negli. 35 # 18 # 7 # 50 # 25 # 10 # 75 # 100 # >100 # 38 # 50 # >50 # 15 # 20 # >20 # Weight:: 214 kg Hand Dominance: Right Medical History Including Restrictions: pt states he was in good health until he suffered right knee injury on 01/02/21. pt was diagnosis of R MCL, ACL tear and had right MCP, and ACL reconstruction and lateral meniscus repair. Due to covid and along with fractures within the tib/fib- DOS: 04/17/21. mechanism of injury: pt states he was tying down a tree and rope broke he fell of the semi trailer. pt underwent 72 physical therapy session with good results. pt states he continues to struggle with hamstring tightness at times but days he will be fine. pt states stretching does help- pt states he will do his HEP as needed. pt states he does have a knee brace he will wear as needed. Diagnoses: sprain of anterior cruciate ligament of right knee. Right MCL, ACL tear. chronic pain right knee Symptoms: right hamstring tightness. right lateral and medial side of knee tightness. right knee lateral side pain Pain: Pt denies pain at this time. pt states achy at times but know he will have that based on what he is doing. 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 pt states he does help with placing trees on trailers- tie eq. and trees down etc. pt lifting requirement varies to about 50#, run equipment, pt needs to be able to move and fix eq. pt states he does have a morelos he can use when he needs to lift heavy eq. pt states will need to fix eq. and my be required to kneel, squat, twist or turn as needed. pt has returned to work and has not had difficulty with his work tasks. Behavioral: pt was cooperative throughout assessment and put forth good effort. ADLS: Pt states he is IND with all ADLs and IADLs. pt is driving and performing home mtg. tasks. ROM: pt demo all ROM WNL. right knee flexion 120* Strength: fet2 peak force testing. right shoulder flexion 27# left 23#. right shoulder extension 37# left 35#. right biceps 43# left 46#. right triceps 35# left 36#. right hip flexion 34# left 36#. right quadriceps 36# left 38#. right hamstring 38# left 38# Right Patient Financial Services Manager Strength Average: 130.00 Right Patient Financial Services Manager Strength Percentile: 72% Left Patient Financial Services Manager Strength Average: 126.66 Left Patient Financial Services Manager Strength Percentile: 78% Right Lateral Pinch Average: 17.00 Right Lateral Pinch Percentile: 10% Left Lateral Pinch Average: 18.66 Left Lateral Pinch Percentile: 25% Right Tripod Pinch Average: 20.00 Right Tripod Pinch Percentile: 50% Left Tripod Pinch Average: 22.00 Left Tripod Pinch Percentile: 75% Sensation: Denies Fine Motor: Denies Balance: functional reach 14. Interpretation: A score of 6 or less indicates a significant. increased risk for falls. A score between 6-10 inches indicates a. moderate risk for falls. (average for men 41-69yrs 14.9 ? 2.2). pt demo with normal balance Bending: pt demo bending forward 3/3x, 10/10x heart rate 97 and 10/10 rapidly. pt can bend forward on constant ability. Squatting: pt demo full squat 3/3x feeling tightness on bilateral sides of his knee. pt completed 10/10x heart rate 110. pt completed 10/10x rapidly heart rate after 118. reports lateral side right knee pain 3/10. pt demo the ability to squat on frequent ability Kneeling: pt demo the ability to kneel 3/3x, 10/10. heart rate 119. pt can kneel on a frequent ability Reaching out/up: pt demo demo the ability to reach up/out 3/3x, 10/10x and 10/10x rapidly. pt demo the ability to reach up/out on constant ability. pt demo the ability to reach up/out on constant ability. heart rate 105 Walking: pt demo the ability to ambulate with a reciprocal step pattern with good speed and step length. pt can ambulate on constant ability. Standing: pt demo the ability to stand for 10 min with shifting body weight- pt can stand on constant ability with shifting body weight. Sitting: pt demo the ability to sit for 45 min with no difficulty. pt states stiffness if driving for 8 hours in car. not when sitting. pt can sit on constant ability Climbing Stairs: pt demo the ability to ascend and descend 10 steps with reciprocal step pattern with good ability. Floor Lift: pt demo the ability to lift 75# maximally from floor level with good lifting mechanics. A PHYSICAL DEMAND LEVEL OF MEDIUM-HEAVY Knee Lift: pt demo the ability to lift 75# maximally from knee level with good lifting mechanics. A PHYSICAL DEMAND LEVEL OF MEDIUM-HEAVY Waist Lift: pt demo the ability to lift 75# maximally from waist level with good lifting mechanics. A PHYSICAL DEMAND LEVEL OF MEDIUM-HEAVY Shoulder Lift: pt demo the ability to lift 50# maximally from shoulder level with good lifting mechanics. A PHYSICAL DEMAND LEVEL OF MEDIUM Overhead Lift: pt demo the ability to lift 35# maximally from overhead level with good lifting mechanics. A PHYSICAL DEMAND LEVEL OF LIGHT- MEDIUM Carrying: pt demo the ability to carry 50# for 45' with good ability. heart rate 125 Comments: pt demo the ability to push/pull 180# for 20' with good ability. pt heart rate varied from 83 to 125 during assessment based on physical exertion. pt demo good safe lifting mechanics. pt reported pain in right knee soreness (2/10)
--- NOTE | 2022-07-12 11:26 | HP.OTFCE.D ---
FCE D/C Summary - Discharge KURT PECK was seen for a one time visit for an FCE on 07/12/22 and is discharged.
== END 2022-07-12 19:00 | disposition home or self-care (01) ==
LOC: OT 07:56
PROVIDERS: PCP Family Medicine; Referring Provider Orthopaedic Surgery; Visit Provider Orthopaedic Surgery
DX: S83.421D Sprain of lateral collateral ligament of right knee, subsequent encounter (principal); S83.261D Peripheral tear of lateral meniscus, current injury, right knee, subsequent encounter; S83.511D Sprain of anterior cruciate ligament of right knee, subsequent encounter; Z98.890 Other specified postprocedural states
CPT/HCPCS: 97750

== ENCOUNTER → 2024-09-15 | Outpatient (CLI) | payer OTHER, SELFPAY ==
--- NOTE | 2024-09-15 16:08 | RAD_ITS ---
PROCEDURE: FINGER(S) MIN 2 VIEWS 09/15/2024 REASON FOR EXAM: OPEN FRACTURE OF DISTAL PHALANX TECHNIQUE: FINGER(S) MIN 2 VIEWS COMPARISON: 08/26/2024 FINDINGS: Recent mildly-displaced 3rd digit tuft fracture, interval increase in lucency at the fracture line. No definite callus or new bone formation. RAD/Finger(s) Min 2 Views IMPRESSION: No significant healing, 3rd digit injury. [facility]
== END | disposition home or self-care (01) ==
LOC: RAD 16:07
PROVIDERS: PCP Family Medicine; Referring Provider Surgery Plastic and Reconstructive Surgery; Visit Provider Surgery Plastic and Reconstructive Surgery
DX: S62.632B Displaced fracture of distal phalanx of right middle finger, initial encounter for open fracture (principal)
CPT/HCPCS: 73140